=== PATIENT | female | born 1955 | race Caucasian/White ===

== ENCOUNTER 2016-10-28 01:25 | Emergency (ER) | payer BC ==
--- NOTE | 2016-10-28 01:41 | EDM.PDOC ---
ED HPI GENERAL MEDICAL PROBLEM - General Chief Complaint: Headache Stated Complaint: Headache, closed head injury, 10/24 Time Seen by Provider: 10/28/16 01:34 Source of Information: Reports: Patient History Limitations: Reports: No Limitations - History of Present Illness INITIAL COMMENTS - FREE TEXT/NARRATIVE: Patient initially struck her head on a door last Thursday10/24/16. This did not result in LOC, change in mentation, nausea, vomiting. She did develop a headache on Thursday. Today she had an additional headache around 2 pm. This has worsened over the day. Some ibuprofen was taken, only 200-400 mg, there was some relief from this. No history of migraines. Does admit to some anxiety. On HCTZ for hypertension. She has no other complaints. 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 Right sided headache Pain Score (Numeric/FACES): 8 - Related Data Allergies Allergy/AdvReac Type Severity Reaction Status Date / Time No Known Allergies Allergy Verified 10/28/16 01:33 Home Meds: Home Meds Hydrochlorothiazide 12.5 mg PO DAILY 10/28/16 [History] ED ROS GENERAL - Review of Systems Review Of Systems: See Below Constitutional: Reports: No Symptoms HEENT: Reports: No Symptoms Respiratory: Reports: No Symptoms Cardiovascular: Reports: No Symptoms Endocrine: Reports: No Symptoms GI/Abdominal: Reports: No Symptoms : Reports: No Symptoms Musculoskeletal: Reports: No Symptoms Skin: Reports: No Symptoms Neurological: Reports: Headache Psychiatric: Reports: No Symptoms Hematologic/Lymphatic: Reports: No Symptoms Immunologic: Reports: No Symptoms - Physical Exam Exam: See Below Exam Limited By: No Limitations General Appearance: Alert, WD/WN, Mild Distress Eye Exam: Bilateral Eye: EOMI, PERRL Ears: Normal TMs Throat/Mouth: Normal Inspection, Normal Oropharynx Head Exam: Atraumatic, Normocephalic Neck: Normal Inspection, Supple, Non-Tender, Full Range of Motion Respiratory/Chest: No Respiratory Distress, Lungs Clear, Normal Breath Sounds, No Accessory Muscle Use, Chest Non-Tender Cardiovascular: Normal Peripheral Pulses, Regular Rate, Rhythm, No Edema, No Gallop, No Murmur GI/Abdominal: Normal Bowel Sounds, Soft, Non-Tender, No Organomegaly, No Distention Neuro Exam (Abbreviated): Alert, Oriented, CN II-XII Intact, Normal Cognition, Normal Gait, Normal Reflexes, No Motor/Sensory Deficits Extremities: Normal Inspection, Normal Range of Motion, Non-Tender, No Pedal Edema, Normal Capillary Refill Psychiatric: Normal Affect, Normal Mood Skin Exam: Warm, Dry, Intact, Normal Color, No Rash Course - Vital Signs Last Recorded V/S: Last Vital Signs Temp 35.8 C 10/28/16 01:30 Pulse 64 10/28/16 01:30 Resp 16 10/28/16 01:30 BP 196/113 H 10/28/16 01:30 Pulse Ox 95 10/28/16 01:30 - Orders/Labs/Meds Orders: Active Orders 24 hr Category Date Time Status Head wo Cont [CT] Stat Exams 10/28/16 01:34 Ordered - Re-Assessments/Exams Free Text/Narrative Re-Assessment/Exam: 10/28/16 01:[address] ordered due to lingering headaches that are worsening 10/28/16 02:58 CT did show small right sided subdural hematoma with 4 mm midline shift to the left, small intra falcine subdural hematoma 10/28/16 02:59 telephone consultation with Drs. Bass and Adela at . Hospitalist services to admit with neurosurgery consultation. Departure - Departure Time of Disposition: 03:55 Disposition: DC/Tfer to Acute Hospital 02 Condition: Good Clinical Impression: Subdural hematoma, acute - Discharge Information Forms: Interfacility Transfer EMTALA - My Orders Last 24 Hours: My Active Orders 10/28/16 01:34 Head wo Cont [CT] Stat - Assessment/Plan Last 24 Hours: My Active Orders 10/28/16 01:34 Head wo Cont [CT] Stat
[2016-10-28] MEDS ORDERED: Ondansetron 4 MG Tab.DIS PO ONE (01:49)
[2016-10-28] MEDS ORDERED: Acetaminophen 500 MG Tab PO ONE (02:34)
[2016-10-28] MEDS ORDERED: SODIUM CHLORIDE 0.9% IV ONE (03:00)
[2016-10-28] MEDS ORDERED: LEVETIRACETAM IV ONE (03:00)
[2016-10-28] MEDS ORDERED: Sodium Chloride 0.9% 1,000 ML IV SCH (03:00)
[2016-10-28] MEDS ORDERED: Sodium Chloride 0.9% 10 ML Syringe FLUSH PRN (03:00)
[2016-10-28] MEDS ORDERED: Labetalol 20 MG/4 ML Syringe IVPUSH ONE (03:04)
[2016-10-28 03:53] LABS: CHLORIDE,CL 99 mmol/L (98-107); SODIUM,NA 135 mmol/L (136-145)
== END 2016-10-28 03:55 | disposition short-term general hospital (02) ==
LOC: VM.ED 01:25
DX: S06.5X0A Traumatic subdural hemorrhage without loss of consciousness, initial encounter (principal); W22.8XXA Striking against or struck by other objects, initial encounter
CPT/HCPCS: 36415; 70450; 80053; 85025; 85610; 96374; 96375; 99285; A9270; J1953; J7030; J7050

== ENCOUNTER 2017-07-12 14:42 | Emergency (ER) | payer BC ==
[2017-07-12] MEDS ORDERED: Sodium Chloride 0.9% 10 ML Syringe FLUSH PRN (15:03)
[2017-07-12] MEDS ORDERED: ceFAZolin 1 GM Vial IVPUSH ONE (15:06)
[2017-07-12 15:47] LABS: CHLORIDE,CL 100 mmol/L (98-107); SODIUM,NA 135 mmol/L (136-145)
--- NOTE | 2017-07-12 16:30 | EDM.PDOC ---
ED HPI GENERAL MEDICAL PROBLEM - General Chief Complaint: Skin Complaint Stated Complaint: RASH ON RIGHT WRIST Time Seen by Provider: 07/12/17 14:55 Source of Information: Reports: Patient History Limitations: Reports: No Limitations - History of Present Illness INITIAL COMMENTS - FREE TEXT/NARRATIVE: Pt. presents to ER with complaints of erythema, warmth, and edema to R forearm. Pt. states that this started to develop on AM, and noticed it when she woke up. She states that she does not recall injuring herself, getting bitten by and insect, or any other cause of the infection. She states that she has been chilled, but denies any sweats or rigors. She states that the erythema is isolated to her R forearm, and states that there is an area that is raised in that distal area of erythema. She states that she has increased discomfort with deep palpation of the area. She denies any issues with skin structure infections. Denies any known history of MRSA colonization. She denies any recent hospitalizations (was hospitalized for traumatic subdural bleed in 10/2016). Onset Date: 07/09/17 Duration: Constant, Getting Worse Location: Reports: Upper Extremity, Right Quality: Reports: Ache, Burning Severity: Severe Improves with: Reports: Rest Worsens with: Reports: Movement Context: Denies: Sick Contact, Trauma Associated Symptoms: Reports: Fever/Chills, Headaches, Rash. 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 Denies: Malaise, Weakness, Fatigue, Night Sweats, Diaphoresis, Decreased Appetite, Weight Loss, Weight Gain HEENT: Denies: No Symptoms Respiratory: Reports: No Symptoms. Denies: Shortness of Breath Cardiovascular: Reports: No Symptoms. Denies: Chest Pain Endocrine: Reports: No Symptoms. Denies: Fatigue, Polydypsia, Polyuria GI/Abdominal: Reports: No Symptoms. Denies: Decreased Appetite, Nausea, Vomiting : Reports: No Symptoms Musculoskeletal: Reports: Arm Pain (R forearm swelling/erythema) Skin: Reports: Erythema, Lumps (R forearm) Neurological: Reports: No Symptoms Psychiatric: Reports: No Symptoms Hematologic/Lymphatic: Reports: No Symptoms Immunologic: Reports: No Symptoms ED EXAM, SKIN/RASH Exam: See Below Exam Limited By: No Limitations General Appearance: Alert, WD/WN, No Apparent Distress Throat/Mouth: Normal Inspection, Normal Lips, Normal Teeth, Normal Gums, Normal Oropharynx, Normal Voice (l), No Airway Compromise Head: Atraumatic, Normocephalic Neck: Normal Inspection, Supple, Non-Tender, Full Range of Motion Respiratory/Chest: No Respiratory Distress, Lungs Clear, Normal Breath Sounds, No Accessory Muscle Use, Chest Non-Tender Cardiovascular: Normal Peripheral Pulses, Regular Rate, Rhythm, No Edema, No Gallop, No JVD, No Murmur, No Rub Peripheral Pulses: 4+: Radial (L), Radial (R) GI/Abdominal: Soft, No Organomegaly, No Distention (Female) Exam: Deferred Rectal (Female) Exam: Deferred Back Exam: Normal Inspection, Full Range of Motion, NT Extremities: Arm Pain, Increased Warmth, Redness, Other (Erythema and edema to distal portion of R forearm). No: Slow Capillary Refill, Joint Swelling Neurological: Alert, Oriented, CN II-XII Intact, Normal Cognition, Normal Gait, Normal Reflexes, No Motor/Sensory Deficits Psychiatric: Normal Affect, Normal Mood Skin: Warm, Erythema, Increased Warmth, Rash Location, Skin: Upper Extremity, Right Characteristics: Confluent, Erythematous Associated features: Warmth, Tenderness, Swelling. No: Lymphangitis Lymphatic: No Adenopathy Course - Vital Signs Last Recorded V/S: Last Vital Signs Temp 36.2 C 07/12/17 14:50 Pulse 68 07/12/17 14:50 Resp 16 07/12/17 14:50 BP 121/82 07/12/17 14:50 Pulse Ox 96 07/12/17 14:50 - Orders/Labs/Meds Orders: Active Orders 24 hr Category Date Time Status CULTURE BLOOD [BC] Stat Lab 07/12/17 15:15 Received CULTURE BLOOD [BC] Stat Lab 07/12/17 15:25 Received Sodium Chloride 0.9% [Saline Flush] Med 07/12/17 15:03 Active 10 ml FLUSH ASDIRECTED PRN Blood Culture x2 Reflex Set [OM.PC] Stat Oth 07/12/17 15:06 Ordered Peripheral IV Insertion Adult [OM.PC] Routine Oth 07/12/17 15:04 Ordered Medication Orders Sodium Chloride (Saline Flush) 10 ml FLUSH ASDIRECTED PRN PRN Reason: Keep Vein Open Last Admin: 07/12/17 15:25 Dose: 10 ml Labs: Laboratory Tests 07/12/17 07/12/17 07/12/17 Range/Units 15:15 15:15 15:15 WBC 9.7 (4.0-10.0) x10^3/uL RBC 3.92 L (4.00-5.50) x10^6/uL Hgb 12.9 (12.0-16.0) g/dL Hct 37.3 (33.0-47.0) % MCV 95.2 H D (78.0-93.0) fL MCH 32.9 H (26.0-32.0) pg MCHC 34.6 (32.0-36.0) g/dL RDW Coeff of Sarah 13.1 (10.0-15.0) % Plt Count 275 (130-400) x10^3/uL Neut % (Auto) 71.3 (50.0-80.0) % Lymph % (Auto) 14.9 L (25.0-50.0) % [place] % (Auto) 12.7 H (2.0-11.0) % Eos % (Auto) 0.5 (0.0-4.0) % Baso % (Auto) 0.6 (0.2-1.2) % Sodium 135 L (136-145) mmol/L Potassium 3.8 (3.5-5.1) mmol/L Chloride 100 (98-107) mmol/L Carbon Dioxide 20 L (21-32) mmol/L BUN 9 (7-18) mg/dL Creatinine 0.9 (0.55-1.02) mg/dL Est Cr Clr Drug Dosing 60.67 mL/min Estimated GFR (MDRD) > 60 Glucose 135 H (74-106) mg/dL Lactic Acid 1.9 (0.4-2.0) mmol/L Calcium 9.7 (8.5-10.1) mg/dL Corrected Calcium 10.26 H (8.5-10.1) mg/dL Total Bilirubin 0.3 (0.2-1.0) mg/dL AST 17 (15-37) U/L ALT 23 (14-59) U/L Alkaline Phosphatase 92 (46-116) U/L C-Reactive Protein 7.8 H (<=0.9) mg/dL Total Protein 7.5 (6.4-8.2) g/dL Albumin 3.3 L (3.4-5.0) g/dL Globulin 4.2 Albumin/Globulin Ratio 0.79 Meds: Medications Generic Name Dose Route Start Last Admin Trade Name Freq PRN Reason Stop Dose Admin Sodium Chloride 10 ml 07/12/17 15:03 07/12/17 15:25 Saline Flush FLUSH 10 ml ASDIRECTED PRN Administration Keep Vein Open Discontinued Medications Generic Name Dose Route Start Last Admin Trade Name Freq PRN Reason Stop Dose Admin Cefazolin Sodium 2 gm 07/12/17 15:06 07/12/17 15:22 Ancef IVPUSH 07/12/17 15:07 2 gm ONETIME ONE Administration Departure - Departure Time of Disposition: 16:27 Disposition: Home, Self-Care 01 Clinical Impression: Cellulitis of forearm, right - Discharge Information Instructions: Cellulitis, Adult, Cefazolin injection Referrals: PCP,None [Primary Care Provider] - Forms: ED Department Discharge Additional Instructions: Return to ER tonight at approx. 11:30 PM for second dose of IV antibiotics. I will look at it then, but we will likely give a third dose at approx. 7:30 AM tomorrow as well. We may need to change/add antibiotics based on how this infection looks. You will need to be on oral antibiotics starting tomorrow as well. How well you do with the IV antibiotics will determine what I start you on. It is OK to have a fever, and will shorten the course of the infection. Return to ER if you have racing heart, lightheadedness, weakness, or if you feel faint. Call the ER at [phone] if you have any questions or concerns. - My Orders Last 24 Hours: My Active Orders 07/12/17 15:03 Sodium Chloride 0.9% [Saline Flush] 10 ml FLUSH ASDIRECTED PRN 07/12/17 15:04 Peripheral IV Insertion Adult [OM.PC] Routine 07/12/17 15:06 Blood Culture x2 Reflex Set [OM.PC] Stat 07/12/17 15:15 CULTURE BLOOD [BC] Stat 07/12/17 15:25 CULTURE BLOOD [BC] Stat - Assessment/Plan Last 24 Hours: My Active Orders 07/12/17 15:03 Sodium Chloride 0.9% [Saline Flush] 10 ml FLUSH ASDIRECTED PRN 07/12/17 15:04 Peripheral IV Insertion Adult [OM.PC] Routine 07/12/17 15:06 Blood Culture x2 Reflex Set [OM.PC] Stat 07/12/17 15:15 CULTURE BLOOD [BC] Stat 07/12/17 15:25 CULTURE BLOOD [BC] Stat Assessment:: Cellulitis of R upper extremity Plan: Area was outlined in ink. Will have pt. return to ER at 2330 this evening and again at 0730 tomorrow morning for 2nd and 3rd dose of ancef 2 gm IV. IV was kept in and secured with coban. Will reevaluate infection on subsequent outpatient visits, and will tailor treatment to response. Likely etiologies of this cellulitis are either staph or strep species. Will empirically cover for MSSA and will add vancomycin if no improvement to cover for MRSA. We will transition to oral antibiotics based on intravenous response. At this time there is no abscess, however there is a raised area if increased confluence in the distal area of the cellulitis which may form an abscess. If this indeed happens, I and D will be performed to aid with clearing of infection as well as to obtain culture and susceptibility. Advised to return to ER if she develops weakness, lightheadedness, chest pain, shortness of breath, or racing heart.
== END 2017-07-12 16:27 | disposition home or self-care (01) ==
LOC: VM.ED 14:42
DX: L03.113 Cellulitis of right upper limb (principal); F17.210 Nicotine dependence, cigarettes, uncomplicated; I10 Essential (primary) hypertension; Z79.899 Other long term (current) drug therapy
CPT/HCPCS: 36415; 80053; 83605; 85025; 86140; 87040; 96374; 99283; J0690; J7050